=== PATIENT | male | born 1975 | race Caucasian/White ===

== ENCOUNTER 2018-01-14 15:07 | Emergency (ER) | payer BC, OTHER ==
--- NOTE | 2018-01-14 16:53 | ER Document Report ---
ED Medical Screen (RME) - General Chief Complaint: Shortness Of Breath Stated Complaint: SHORTNESS OF BREATH Time Seen by Provider: 01/14/18 16:28 Notes: RAPID MEDICAL EVALUATION DISCLOSURE I have seen this patient as part of a Rapid Medical Evaluation and, if applicable, placed any initially appropriate orders. The patient will be seen and fully evaluated, including a full history and physical exam, by a provider ( in Main ED or Fast Track) when a room becomes available. 42-year-old male here with complaints of shortness of breath and epigastric abdominal pain that started early this morning. He was sent here for further evaluation. He has not had any nausea vomiting diarrhea fevers chills. The pain is worse with breathing but not with exertion. He has a history of "large hiatal hernia where my stomach and colon was in my chest compressing my left lung". EXAM CTAB RRR Epigastric TTP TRAVEL OUTSIDE OF THE [place] IN LAST 30 DAYS: No - Related Data Allergies/Adverse Reactions: No Known Allergies Allergy (Unverified 01/14/18 15:11) Past Medical History - Social History Chew tobacco use (# tins/day): No Frequency of alcohol use: None Drug Abuse: None Renal/ Medical History: Denies: Hx Peritoneal Dialysis Musculoskeltal Medical History: Reports Hx Arthritis Past Surgical History: Reports: Hx Abdominal Surgery - hernia x 2, Hx Pituitary Surgery - x 2 Physical Exam - Vital signs Vitals: Temp Pulse Resp BP Pulse Ox 98.7 F 76 18 125/79 99 01/14/18 15:24 01/14/18 15:24 01/14/18 15:24 01/14/18 15:24 01/14/18 15:24 Course - Vital Signs Vital signs: Temp Pulse Resp BP Pulse Ox 98.7 F 76 18 125/79 99 01/14/18 15:24 01/14/18 15:24 01/14/18 15:24 01/14/18 15:24 01/14/18 15:24
[2018-01-14 17:42] LABS: ABSOLUTE EOSINOPHILS # (AUTO) 0.1 10^3/uL (0.0-0.6); ABSOLUTE MONOCYTES (AUTO) 0.5 10^3/uL (0.1-1.4); ABSOLUTE NEUT (AUTO) 4.4 10^3/uL (1.7-8.2); BASOPHILS % (AUTO) 0.4 % (0-2); EOSINOPHILS % (AUTO) 1.9 % (0-6); HEMATOCRIT 40.5 % (37.9-51.0); HEMOGLOBIN 13.8 g/dL (13.5-17.0); LYMPHOCYTES % (AUTO) 28.9 % (13-45); MEAN CORPUSCULAR HEMOGLOBIN 30.8 pg (27.0-33.4); MEAN CORPUSCULAR VOLUME 90 fl (80-97); MONOCYTES % (AUTO) 6.5 % (3-13); PLATELET COUNT 230 10^3/uL (150-450); RED BLOOD COUNT 4.48 10^6/uL (4.35-5.55); RED CELL DISTRIBUTION WIDTH 13.7 % (11.5-14.0); SEGMENTED NEUTROPHILS % (AUTO) 62.3 % (42-78); TOTAL CELLS COUNTED % (AUTO) 100 %
[2018-01-14 17:45] LABS: APPEARANCE,URINE CLEAR; BILIRUBIN,URINE NEGATIVE (NEGATIVE); COLOR,URINE YELLOW; GLUCOSE, URINE NEGATIVE (NEGATIVE); KETONES,URINE NEGATIVE (NEGATIVE); LEUKOCYTE ESTERASE,URINE NEGATIVE (NEGATIVE); NITRITE,URINE NEGATIVE (NEGATIVE); PROTEIN,URINE NEGATIVE (NEGATIVE); URINE SPECIFIC GRAVITY 1.018
[2018-01-14 18:01] LABS: ALANINE AMINOTRANSFERASE 19 U/L (21-72); ALBUMIN 4.3 g/dL (3.5-5.0); ALKALINE PHOSPHATASE 67 U/L (38-126); ANION GAP 12 (5-19); ASPARTATE AMINO TRANSFERASE 15 U/L (17-59); BILIRUBIN,DIRECT 0.3 mg/dL (0.0-0.4); BILIRUBIN,TOTAL 0.3 mg/dL (0.2-1.3); BLOOD UREA NITROGEN 9 mg/dL (7-20); CALCIUM 9.4 mg/dL (8.4-10.2); CARBON DIOXIDE 27 mmol/L (22-30); CHLORIDE 103 mmol/L (98-107); GLUCOSE 147 mg/dL (75-110); LIPASE 328.3 U/L (23-300); POTASSIUM 4.2 mmol/L (3.6-5.0); SODIUM 142.2 mmol/L (137-145)
--- NOTE | 2018-01-14 18:03 | RADIOLOGY REPORT (SQ) ---
EXAM DESCRIPTION: CHEST 2 VIEWS COMPLETED DATE/TIME: 01/14/2018 5:54 pm REASON FOR STUDY: SOB COMPARISON: None. EXAM PARAMETERS: NUMBER OF VIEWS: two views TECHNIQUE: Digital Frontal and Lateral radiographic views of the chest acquired. RADIATION DOSE: NA LIMITATIONS: none FINDINGS: LUNGS AND PLEURA: Underlying emphysema. No opacities, masses or pneumothorax. No pleural effusion. MEDIASTINUM AND HILAR STRUCTURES: Moderate hiatal hernia. HEART AND VASCULAR STRUCTURES: Heart normal size. No evidence for failure. BONES: No acute findings. HARDWARE: None in the chest. OTHER: Gas distended loops of small and large bowel. IMPRESSION: NO ACUTE RADIOGRAPHIC FINDING IN THE CHEST. MODERATE HIATAL HERNIA. GAS DISTENDED LOOPS OF SMALL AND LARGE BOWEL. CORRELATE WITH GI SYMPTOMS. TECHNICAL DOCUMENTATION: JOB ID: [id number] [employer]- All Rights Reserved Reading location - IP/workstation name: [email or web address]
--- NOTE | 2018-01-14 19:39 | ER Document Report ---
ED General - General Chief Complaint: Shortness Of Breath Stated Complaint: SHORTNESS OF BREATH Time Seen by Provider: 01/14/18 16:28 TRAVEL OUTSIDE OF THE [place] IN LAST 30 DAYS: No - HPI Notes: 42-year-old male with history of pituitary surgery, acromegaly, previous complicated abdominal surgery for hiatal hernia with resultant subsequent surgeries for complications who presents with epigastric pain. Patient was actually referred by an urgent care to be evaluated. Describes 2-3 days of effective the epigastric pain. Mild discomfort. Sharp at times. States that sometimes it makes it hard for him to breathe. He has had no vomiting, no diarrhea, no fevers. Normal bowel movements for him which are a bit more liquid than normal. No fever. Pain is localized to his epigastric region. No other modifying factors, no other associated symptoms, no other provocative or palliative factors. - Related Data Allergies/Adverse Reactions: No Known Allergies Allergy (Unverified 01/14/18 15:11) Past Medical History - Social History Smoking Status: Current Every Day Smoker Chew tobacco use (# tins/day): No Frequency of alcohol use: None Drug Abuse: None Family History: Reviewed & Not Pertinent Patient has suicidal ideation: No Patient has homicidal ideation: No - Medical History Notes: Includes "pituitary surgery" and hiatal hernia surgery with subsequent surgical complications and repeat surgeries Renal/ Medical History: Denies: Hx Peritoneal Dialysis Musculoskeltal Medical History: Reports Hx Arthritis Past Surgical History: Reports: Hx Abdominal Surgery - hernia x 2, Hx Pituitary Surgery - x 2 Review of Systems - Review of Systems Notes: Review of systems as in the history of present illness, otherwise negative. Physical Exam - Vital signs Vitals: Temp Pulse Resp BP Pulse Ox 98.7 F 76 18 125/79 99 01/14/18 15:24 01/14/18 15:24 01/14/18 15:24 01/14/18 15:24 01/14/18 15:24 - Notes Notes: General: Well developed . HEENT: Normocephalic, atraumatic. Pupils equal round reactive to light. No JVD. Chest: No trauma. Respiratory: Good air exchange, normal excursion. Cardiac: Regular rhythm. No murmurs or gallops. Abdomen: Soft, benign. Nondistended, no guarding rigidity or rebound. There is mild epigastric tenderness. Back: No asymmetry or gross abnormality. Motor: Grossly normal power and tone. Neurologic: Alert, nonfocal. Cranial nerves II-12 are intact. Sensation intact. Vascular: Well perfused. Normal peripheral pulses. Skin: No petechiae or purpura. Course - Re-evaluation Re-evalutation: 01/14/18 19:56 This is a 42-year-old male presents with the after mentioned symptoms. On distracted examination he is exquisitely comfortable, has no tachycardia, no fever. He has minimal tenderness on distracted examination. He was seen initially by the physician in triage. A chest x-ray shows a moderate hiatal hernia, no free air. Labs reviewed, CBC is normal, chemistries LFTs are normal. Lipase is only minimally elevated, does not meet criteria for pancreatitis. At this point, I do not believe patient requires emergent CT imaging. I believe he would be best served by follow-up with his regional surgeon and primary care doctor. He is declined my offer for H2 blockers/PPI and Carafate. I have asked that if she has any fever, if he has any worsening symptoms to return immediately. Of note, does not appear to be pleuritic pain, and he is PE RC negative, I would not pursue pulmonary embolism workup. 01/14/18 19:58 - Vital Signs Vital signs: Temp Pulse Resp BP Pulse Ox 98.7 F 76 18 125/79 99 01/14/18 15:24 01/14/18 15:24 01/14/18 15:24 01/14/18 15:24 01/14/18 15:24 - Laboratory Result Diagrams: 01/14/18 17:08 01/14/18 17:08 Laboratory results interpreted by me: 01/14/18 01/14/18 17:08 17:08 Glucose 147 H AST 15 L ALT 19 L Lipase 328.3 H Urine Urobilinogen 2.0 H Discharge - Discharge Clinical Impression: Epigastric pain Condition: Stable Disposition: HOME, SELF-CARE Instructions: Abdominal Pain ([facility]) Additional Instructions: See your primary care doctor and original surgeon, make an appointment to be seen over the next day or 2.
--- NOTE | 2018-01-14 20:37 | EKG REPORT ---
SEVERITY:- BORDERLINE ECG - SINUS RHYTHM BORDERLINE R WAVE PROGRESSION, ANTERIOR LEADS : Confirmed by: Janes Kerns MD 14-Jan-2018 20:36:06
[2018-01-14 21:08] VITALS: BP 127/84
== END 2018-01-14 21:05 | disposition home or self-care (01) ==
LOC: ER 15:07
DX: R10.13 Epigastric pain (principal); R06.02 Shortness of breath; F17.200 Nicotine dependence, unspecified, uncomplicated
CPT/HCPCS: 36415; 71046; 80053; 81001; 83690; 84484; 85025; 93005; 93010; 99285

== ENCOUNTER 2020-03-07 18:29 | Emergency (ER) | payer BC ==
--- NOTE | 2020-03-07 18:47 | ER Document Report ---
ED Medical Screen (RME) - General Chief Complaint: Dizziness Stated Complaint: DIZZINESS Time Seen by Provider: 03/07/20 18:41 Notes: Patient is a 44-year-old male with a history of high cholesterol and borderline diabetes, acromegaly who presents emergency department with a chief complaint of dizziness. Patient reports he was at work and around 5:30 PM he was leaving the break room. Patient reports he was walking towards the building when he started to have a staggered walk. Patient reports he had looked at the building and it looked like it was moving back and forth. Patient reports he bent down to pick something up and that his symptoms became worse. Patient reports he did lower himself to the ground to rest and called his boss. Patient did not fall or have a loss of consciousness. Patient reports at this time although he is not having an unsteady gait he feels out of it and not like his normal self. Patient is not a diabetic. Patient denies any new medications. Denies numbness or tingling to upper or lower extremities. TRAVEL OUTSIDE OF THE [place] IN LAST 30 DAYS: No - Related Data Allergies/Adverse Reactions: No Known Allergies Allergy (Unverified 01/14/18 15:11) Home Medications: statin Past Medical History - Social History Chew tobacco use (# tins/day): No Frequency of alcohol use: None Drug Abuse: None Renal/ Medical History: Denies: Hx Peritoneal Dialysis Musculoskeltal Medical History: Reports Hx Arthritis Past Surgical History: Reports: Hx Abdominal Surgery - hernia x 2, Hx Pituitary Surgery - x 2 Physical Exam - HEENT Head: Normocephalic Pupils: PERRL - Respiratory Respiratory status: No respiratory distress Chest status: Nontender Breath sounds: Normal Chest palpation: Normal - Cardiovascular Rhythm: Regular Heart sounds: Normal auscultation, S1 appreciated, S2 appreciated Course - Re-evaluation Re-evalutation: 03/07/20 18:46 Patient no acute distress in triage and ambulating with a cane. Will obtain basic labs, urinalysis and CT of his head. I have greeted and performed a rapid initial assessment of this patient. A comprehensive ED assessment and evaluation of the patient, analysis of test results and completion of the medical decision making process will be conducted by additional ED providers.
[2020-03-07 19:13] LABS: ABSOLUTE EOSINOPHILS # (AUTO) 0.1 10^3/uL (0.0-0.6); ABSOLUTE LYMPHOCYTES (AUTO) 2.3 10^3/uL (0.5-4.7); ABSOLUTE MONOCYTES (AUTO) 0.6 10^3/uL (0.1-1.4); ABSOLUTE NEUT (AUTO) 3.7 10^3/uL (1.7-8.2); BASOPHILS % (AUTO) 0.4 % (0-2); EOSINOPHILS % (AUTO) 1.6 % (0-6); HEMATOCRIT 40.9 % (37.9-51.0); HEMOGLOBIN 13.5 g/dL (13.5-17.0); LYMPHOCYTES % (AUTO) 33.8 % (13-45); MEAN CORPUSCULAR HEMOGLOBIN 31.2 pg (27.0-33.4); MEAN CORPUSCULAR VOLUME 95 fl (80-97); MONOCYTES % (AUTO) 8.9 % (3-13); PLATELET COUNT 180 10^3/uL (150-450); RED BLOOD COUNT 4.32 10^6/uL (4.35-5.55); RED CELL DISTRIBUTION WIDTH 15.2 % (11.5-14.0); SEGMENTED NEUTROPHILS % (AUTO) 55.3 % (42-78); TOTAL CELLS COUNTED % (AUTO) 100 %; WHITE BLOOD COUNT 6.7 10^3/uL (4.0-10.5)
[2020-03-07 19:31] LABS: APPEARANCE,URINE SLIGHTLY-CLOUDY; BILIRUBIN,URINE NEGATIVE (NEGATIVE); COLOR,URINE AMBER; GLUCOSE, URINE NEGATIVE (NEGATIVE); KETONES,URINE NEGATIVE (NEGATIVE); LEUKOCYTE ESTERASE,URINE NEGATIVE (NEGATIVE); NITRITE,URINE NEGATIVE (NEGATIVE); PROTEIN,URINE NEGATIVE (NEGATIVE); URINE SPECIFIC GRAVITY 1.024; UROBILINOGEN,URINE NEGATIVE mg/dL (<2.0)
[2020-03-07 19:32] LABS: ALBUMIN 4.6 g/dL (3.5-5.0); ALKALINE PHOSPHATASE 49 U/L (38-126); ANION GAP 6 (5-19); ASPARTATE AMINO TRANSFERASE 22 U/L (17-59); BILIRUBIN,TOTAL 0.4 mg/dL (0.2-1.3); BLOOD UREA NITROGEN 11 mg/dL (7-20); CALCIUM 9.1 mg/dL (8.4-10.2); CARBON DIOXIDE 29 mmol/L (22-30); CHLORIDE 105 mmol/L (98-107); GLUCOSE 136 mg/dL (75-110); POTASSIUM 4.1 mmol/L (3.6-5.0); TOTAL PROTEIN 7.2 g/dL (6.3-8.2)
--- NOTE | 2020-03-07 20:40 | RADIOLOGY REPORT (SQ) ---
EXAM DESCRIPTION: Noncontrast CT head CLINICAL HISTORY: 44 years Male Acute dizziness, reports unsteady gait TECHNIQUE: Noncontrast CT head. All CT scans at this facility use dose modulation, iterative reconstruction, and/or weight based dosing when appropriate to reduce radiation dose to as low as reasonably achievable. COMPARISON: None. FINDINGS: Exam is significantly technically limited by motion artifact. Tristan matter, white matter, ventricles, and cisterns are within normal limits. No acute hemorrhage or mass effect. Visualized portions of paranasal sinuses and mastoids are clear. Visualized portions of the calvarium are within normal limits. IMPRESSION: Limited by motion artifact. 1. No acute intracranial findings.
[2020-03-07 21:29] VITALS: BP 110/54
[2020-03-07] MEDS ORDERED: MECLIZINE HCL 25 MG TABLET PO ONE (21:50)
[2020-03-07] MEDS ORDERED: HYDROCODONE/ACETAMINOPHEN 5-325 MG TABLET PO ONE (21:50)
--- NOTE | 2020-03-07 22:36 | ER Document Report ---
Entered by CANDICE SOSA SCRIBE 03/07/20 1100 Acting as scribe for:KELSIE MALCOLM DO ED Dizziness/Weakness - General Chief Complaint: Dizziness Stated Complaint: DIZZINESS Time Seen by Provider: 03/07/20 18:41 Primary Care Provider: RAVI KING PA [Primary Care Provider] - 03/08/20 Mode of Arrival: Ambulatory Information source: Patient Notes: This 44 year old male patient presents to the emergency department today with complaints of dizziness. Patient was working today at [employer] when his symptoms began. Patient states he was leaving the break room at around 5:30 PM and everything seemed to be "moving" as he walked. Patient describes vertigo symptoms. Patient also mentions chronic low back and hip pain without any new trauma. Patient denies nausea, vomiting, diarrhea, fevers, or recent sick contacts. TRAVEL OUTSIDE OF THE [place] IN LAST 30 DAYS: No - Related Data Allergies/Adverse Reactions: No Known Allergies Allergy (Unverified 01/14/18 15:11) Home Medications: statin Past Medical History - General Information source: Patient - Social History Smoking Status: Never Smoker Cigarette use (# per day): No Chew tobacco use (# tins/day): No Frequency of alcohol use: None Drug Abuse: None Lives with: Family Family History: Reviewed & Not Pertinent Patient has homicidal ideation: No Musculoskeletal Medical History: Reports Hx Arthritis Past Surgical History: Reports: Hx Abdominal Surgery - hernia x 2, Hx Pituitary Surgery - x 2 Review of Systems - Review of Systems Constitutional: denies: Fever EENT: No symptoms reported Cardiovascular: See HPI, Dizziness Respiratory: No symptoms reported Gastrointestinal: denies: Diarrhea, Nausea, Vomiting Genitourinary: No symptoms reported Male Genitourinary: No symptoms reported Musculoskeletal: No symptoms reported Skin: No symptoms reported Hematologic/Lymphatic: No symptoms reported Neurological/Psychological: No symptoms reported -: Yes All other systems reviewed and negative Physical Exam - Vital signs Vitals: Temp Pulse Resp BP Pulse Ox 98.4 F 77 16 127/83 H 100 03/07/20 18:35 03/07/20 18:35 03/07/20 18:35 03/07/20 18:35 03/07/20 18:35 - Notes Notes: Physical Exam: General: Alert, appears older than stated age. HEENT: Acromegaly. Atraumatic. PERRL. Extraocular movements intact. Oropharynx clear. Neck: Supple. Non-tender. Respiratory: No respiratory distress. Clear and equal breath sounds bilaterally. Cardiovascular: Regular rate and rhythm. Abdominal: Normal Inspection. Non-tender. No distension. Normal Bowel Sounds. Back: No gross abnormalities. Extremities: Moves all four extremities. Upper extremities: Normal inspection. Normal ROM. Lower extremities: Normal inspection. No edema. Normal ROM. Neurological: Normal cognition. AAOx4. Normal speech. Psychological: Normal affect. Normal Mood. Skin: Warm. Dry. Normal color. Course - Re-evaluation Re-evalutation: 03/07/20 22:39 MDM 44 year old male arrives with complaints of acute dizziness at work today. No fever or chills. No chest pain or sob. This pt has a h/o acromegally, htn, dm and chronic back and hip pain. No sign of central cause of this. Feel this is likely BPV and discussed this with him and he expressed understanding. - Vital Signs Vital signs: Temp Pulse Resp BP Pulse Ox 97.9 F 58 L 18 110/54 L 95 03/07/20 21:27 03/07/20 21:27 03/07/20 21:27 03/07/20 21:27 03/07/20 21:27 - Laboratory Result Diagrams: 03/07/20 18:48 03/07/20 18:48 Laboratory results interpreted by me: 03/07/20 03/07/20 03/07/20 18:48 18:48 18:48 RBC 4.32 L RDW 15.2 H Glucose 136 H POC Glucose Urine Ascorbic Acid 20 H 03/07/20 18:57 RBC RDW Glucose POC Glucose 123 H Urine Ascorbic Acid - Diagnostic Test Radiology reviewed: Image reviewed, Reports reviewed - EKG Interpretation by Dc EKG shows normal: Sinus rhythm Rate: Normal Rhythm: NSR - NSR NL [place] [address] elevation or depression my interpretation. Discharge - Discharge Clinical Impression: Vertigo, Left hip pain Back pain Qualifiers: Back pain location: low back pain Chronicity: acute Back pain laterality: unspecified Sciatica presence: without sciatica Qualified Code(s): M54.5 - Low b ack pain Condition: Stable Disposition: HOME, SELF-CARE Instructions: Dizziness ([facility]), Meclizine ([facility]), Vertigo ([facility]) Additional Instructions: No work until 03/10, please return here for any problems or other problems or concerns. Take your medicine as directed. Prescriptions: Meclizine HCl [Antivert 25 mg Tablet] 25 mg PO TID PRN #21 tablet PRN Reason: Forms: Return to Work Referrals: RAVI KING PA [Primary Care Provider] - 03/08/20 I personally performed the services described in the documentation, reviewed and edited the documentation which was dictated to the scribe in my presence, and it accurately records my words and actions.
[2020-03-07] MEDS ORDERED: HYDROCODONE/ACETAMINOPHEN 5-325 MG (6 TAB/ER DISP) PO PRN (22:45)
--- NOTE | 2020-03-08 14:30 | EKG REPORT ---
SEVERITY:- NORMAL ECG - SINUS RHYTHM : Confirmed by: Gio Cotton MD 08-Mar-2020 14:29:36
== END 2020-03-07 22:56 | disposition home or self-care (01) ==
LOC: ER 18:29
DX: M54.5 Low back pain (principal); R42 Dizziness and giddiness; M25.552 Pain in left hip; I10 Essential (primary) hypertension; E11.9 Type 2 diabetes mellitus without complications; G89.29 Other chronic pain
CPT/HCPCS: 36415; 70450; 80053; 81001; 82962; 85025; 93005; 93010; 99284

== ENCOUNTER → 2020-07-13 | Day surgery (SDC) | payer BC ==
--- NOTE | 2020-07-13 14:21 | RADIOLOGY REPORT (SQ) ---
EXAM DESCRIPTION: FLUORO/NEEDLE PLACEMENT; ARTHRO HIP INJ W/ANESTHESIA IMAGES COMPLETED DATE/TIME: 07/13/2020 2:09 pm REASON FOR STUDY: UNILATERAL PRIMARY OSTEOARTHRITIS, LEFT HIP M16.12 UNILATERAL PRIMARY OSTEOARTHRI TIS, LEFT HIP COMPARISON: None. FLUOROSCOPY TIME: 9 SECONDS 2 images saved to PACS. LIMITATIONS: None. PROCEDURE: Procedure, risks, benefits and alternatives explained to patient who then gave written c onsent. The left hip was marked and a time-out was called for correct marking verification. Entry s ite marked using fluoroscopic guidance. Hip prepped and draped using sterile technique. Local anes thesia achieved using 1% lidocaine injection. Hypodermic needle introduced into the joint space und er direct fluoroscopic visualization. Non-ionic contrast instilled to confirm intra-articular positi on. Dilute gadolinium solution then injected. Needle removed and entry site covered with sterile b andage. No immediate complications noted. TECHNIQUE: Digital images acquired during fluoroscopy and stored on PACS. Patient immediately take n to the MR suite for additional imaging. INJECTION LOCATION: Left hip CONTRAST TYPE AND AMOUNT: 1 mL Omnipaque 300, 10 mL dilute ProHance. IMPRESSION: SUCCESSFUL NEEDLE PLACEMENT AND INJECTION FOR LEFT HIP MR ARTHROGRAM. COMMENT: None Quality ID [id number]: Final reports for procedures using fluoroscopy that document radiation exposure justice mj, or exposure time and number of fluorographic images (if radiation exposure indices are not avail able) TECHNICAL DOCUMENTATION: JOB ID: [id number] 2010 [employer]- All Rights Reserved Reading location - IP/workstation name: [email or web address] [id number]
--- NOTE | 2020-07-13 14:22 | RADIOLOGY REPORT (SQ) ---
EXAM DESCRIPTION: FLUORO/NEEDLE PLACEMENT; ARTHRO HIP INJ W/ANESTHESIA IMAGES COMPLETED DATE/TIME: 07/13/2020 2:09 pm REASON FOR STUDY: UNILATERAL PRIMARY OSTEOARTHRITIS, LEFT HIP M16.12 UNILATERAL PRIMARY OSTEOARTHRI TIS, LEFT HIP COMPARISON: None. FLUOROSCOPY TIME: 9 SECONDS 2 images saved to PACS. LIMITATIONS: None. PROCEDURE: Procedure, risks, benefits and alternatives explained to patient who then gave written c onsent. The left hip was marked and a time-out was called for correct marking verification. Entry s ite marked using fluoroscopic guidance. Hip prepped and draped using sterile technique. Local anes thesia achieved using 1% lidocaine injection. Hypodermic needle introduced into the joint space und er direct fluoroscopic visualization. Non-ionic contrast instilled to confirm intra-articular positi on. Dilute gadolinium solution then injected. Needle removed and entry site covered with sterile b andage. No immediate complications noted. TECHNIQUE: Digital images acquired during fluoroscopy and stored on PACS. Patient immediately take n to the MR suite for additional imaging. INJECTION LOCATION: Left hip CONTRAST TYPE AND AMOUNT: 1 mL Omnipaque 300, 10 mL dilute ProHance. IMPRESSION: SUCCESSFUL NEEDLE PLACEMENT AND INJECTION FOR LEFT HIP MR ARTHROGRAM. COMMENT: None Quality ID [id number]: Final reports for procedures using fluoroscopy that document radiation exposure justice mj, or exposure time and number of fluorographic images (if radiation exposure indices are not avail able) TECHNICAL DOCUMENTATION: JOB ID: [id number] 2010 [employer]- All Rights Reserved Reading location - IP/workstation name: [email or web address] [id number]
--- NOTE | 2020-07-13 14:26 | RADIOLOGY REPORT (SQ) ---
EXAM DESCRIPTION: MRI LT LOWER JOINT WITH IMAGES COMPLETED DATE/TIME: 07/13/2020 2:06 pm REASON FOR STUDY: UNILATERAL PRIMARY OSTEOARTHRITIS, LEFT HIP M16.12 UNILATERAL PRIMARY OSTEOARTHRI TIS, LEFT HIP COMPARISON: None. TECHNIQUE: Post arthrogram imaging is performed using T1 and T1 and T2 fat saturated sequences of th e pelvis and specific hip of interest. LIMITATIONS: Patient motion artifact on several acquisitions. FINDINGS: JOINT DISTENSION: Adequate. No loose body. BONE MARROW: No edema. No marrow replacement. FEMORAL HEAD, NECK, AND ACETABULUM: Marked degenerative changes are seen of the bilateral femoroaceta bular joints manifest is prominent marginal osteophyte formation and cortical irregularity of the carl ght-bearing surfaces. PUBIC RAMI AND ISCHIUM: No occult fracture. SACRUM AND NUSRAT: SI joints normal in signal. No occult fracture. 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 EFFUSIONS: None. LABRUM AND CARTILAGE: The left labrum appears diffusely degenerative without focal tear. Irregular c artilaginous thinning is seen of the weight-bearing surfaces without full-thickness cartilaginous inj ury. MUSCLES AND SOFT TISSUES: All PELVIC SOFT TISSUES: The prostate appears uniformly enlarged. An oblong filling defect is seen withi n the bladder. Multiple colonic diverticular are demonstrated without focal inflammatory changes. T here is a prominent rectosigmoid stool burden. SCIATIC NERVE: Identified without masses. OTHER: No other significant finding. IMPRESSION: 1. Degenerative changes of the bilateral hips. 2. Filling defect seen within the bladder may represent an air bubble in the setting of recent instr umentation versus a bladder stone. 3. Diverticulosis without active inflammatory changes. Prominent rectosigmoid stool burden. 4. Uniform enlargement of the prostate gland. 5. 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 TECHNICAL DOCUMENTATION: JOB ID: [id number] 2010 [employer] All Rights Reserved Reading location - IP/workstation name: [email or web address]
== END ==
LOC: RAD 12:32
PROVIDERS: ATTEND Physician Assistant
DX: M16.12 Unilateral primary osteoarthritis, left hip (principal); K57.90 Diverticulosis of intestine, part unspecified, without perforation or abscess without bleeding
CPT/HCPCS: 73722; 77002; 27095; A9576